=== PATIENT | female | born 1945 | race Caucasian/White ===

== ENCOUNTER 2021-12-14 13:50 | Inpatient (IN) ==
[2021-12-14] MEDS ORDERED: Vancomycin 1,000 MG VIAL IVPB ONE (19:48)
[2021-12-14] MEDS ORDERED: Piperacillin/Tazobactam 3.375 GM in 0.9 % Sodium Chloride Mini Bag 100 ML IVPB ONE (20:00)
[2021-12-14 20:53] LABS: Basophils % 0.3 %; Eosinophils % 4.2 %; Hematocrit 30.8 % (35.3-44.9); Hemoglobin 10.4 g/dL (11.5-15.4); Immature Granulocytes % 0.3 % (0-4); Lymphocytes % 21.9 %; Mean Corpuscular HGB Conc 33.8 g/dL (31.6-35.5); Mean Corpuscular Volume 91.9 fL (83.0-100.0); Mean Platelet Volume 9.9 fL (9.4-12.4); Monocytes % 8.4 %; Platelet Count 186 K/mcL (140-400); Red Blood Count 3.35 M/mcL (3.82-4.97); Red Cell Distribution Width 13.6 % (11.5-14.5); Segmented Neutrophils % 64.9 %; White Blood Count 3.3 K/mcL (4.3-11.1)
[2021-12-14 20:54] LABS: Eosinophils # 0.1 K/mcL (0.0-0.6); Lymphocytes # 0.7 K/mcL (0.6-4.6); Monocytes # 0.3 K/mcL (0.0-1.3); Neutrophils # 2.2 K/mcL (1.6-8.9)
[2021-12-14 21:12] LABS: Calcium 8.9 mg/dL (8.6-10.3); Potassium 4.5 mEq/L (3.5-5.1)
[2021-12-14] MEDS ORDERED: Naloxone 0.4 MG/ML INJ IVP PRN (22:20)
[2021-12-14] MEDS ORDERED: Melatonin 3 MG TABLET PO PRN (22:32)
[2021-12-14] MEDS ORDERED: *HR* OxyCODONE Immed Rel 5 MG TABLET PO PRN (22:32)
[2021-12-14] MEDS ORDERED: Ondansetron 4 MG/2 ML VIAL IVP PRN (22:32)
[2021-12-14] MEDS ORDERED: *HR* HYDROcodone/Acet 5/325 mg TABLET PO PRN (22:32)
[2021-12-14] MEDS ORDERED: Acetaminophen 325 MG TABLET PO PRN (22:32)
[2021-12-14] MEDS: 0.9 % Sodium Chloride 1,000 ML IVC SCH (23:24)
[2021-12-15 05:29] LABS: INR 1.2
[2021-12-15 05:36] LABS: Calcium 8.2 mg/dL (8.6-10.3); Magnesium 1.9 mg/dL (1.6-2.6); Potassium 4.9 mEq/L (3.5-5.1)
[2021-12-15] MEDS: *HR* Heparin 5,000 UNIT/ML VIAL SQ SCH ×3 (06:12→22:16)
[2021-12-15 07:15] LABS: Basophils % 0.2 %; Eosinophils % 0.5 %; Hematocrit 31.9 % (35.3-44.9); Hemoglobin 10.4 g/dL (11.5-15.4); Immature Granulocytes % 0.3 % (0-4); Immature Platelets 3.1 % (1.1-6.1); Lymphocytes # 0.2 K/mcL (0.6-4.6); Lymphocytes % 2.9 %; Mean Corpuscular HGB Conc 32.6 g/dL (31.6-35.5); Mean Corpuscular Volume 95.2 fL (83.0-100.0); Mean Platelet Volume 10.9 fL (9.4-12.4); Monocytes # 0.3 K/mcL (0.0-1.3); Monocytes % 5.4 %; Neutrophils # 5.4 K/mcL (1.6-8.9); Platelet Count 104 K/mcL (140-400); Red Blood Count 3.35 M/mcL (3.82-4.97); Red Cell Distribution Width 13.8 % (11.5-14.5); Segmented Neutrophils % 90.7 %; White Blood Count 5.9 K/mcL (4.3-11.1)
[2021-12-15] MEDS: Piperacillin/Tazobactam 3.375 GM in 0.9 % Sodium Chloride Mini Bag 100 ML IVPB SCH (08:41)
[2021-12-15] MEDS ORDERED: allopurinoL 100 MG TABLET PO SCH (09:00)
[2021-12-15] MEDS ORDERED: Gabapentin 300 MG CAPSULE PO SCH ×2 (09:00→12:00)
[2021-12-15] MEDS: 0.9 % Sodium Chloride 1,000 ML IVC SCH (12:00)
[2021-12-15] MEDS ORDERED: Ondansetron 4 MG/2 ML VIAL IVP PRN ×2 (15:40→18:10)
[2021-12-15] MEDS ORDERED: *HR* Labetalol 20 MG/4 ML SYRINGE IVP PRN (15:40)
[2021-12-15] MEDS ORDERED: *HR* FentaNYL (PF) 100 MCG/2 ML VIAL IVP PRN (15:40)
[2021-12-15] MEDS ORDERED: *HR* OxyCODONE Immed Rel 5 MG TABLET PO PRN (15:40)
[2021-12-15] MEDS ORDERED: Ketamine HCL *QUVA* 50mg (1mL) SYRINGE ONE (16:05)
[2021-12-15] MEDS ORDERED: Lidocaine -MPF 2% 2 ML VIAL ONE (16:06)
[2021-12-15] MEDS ORDERED: *HR* Propofol 200 MG/20 ML VIAL IVP ONE (16:07)
[2021-12-15] MEDS ORDERED: Ondansetron 4 MG/2 ML VIAL ONE (16:09)
[2021-12-15] MEDS ORDERED: Lidocaine/EPI 1:200k 1% PF 10 ML VIAL ONE (16:12)
[2021-12-15] MEDS ORDERED: Naloxone 0.4 MG/ML INJ IVP PRN (18:10)
[2021-12-15] MEDS ORDERED: Acetaminophen 325 MG TABLET PO PRN (18:10)
[2021-12-15] MEDS ORDERED: 0.9 % Sodium Chloride 1,000 ML IVC SCH (18:10)
[2021-12-15] MEDS ORDERED: Vancomycin 1,250 MG/262.5 ML IV.SOLN IVPB SCH ×2 (22:00)
[2021-12-15] MEDS: *HR* OxyCODONE Immed Rel 5 MG TABLET PO PRN (22:17)
[2021-12-15] MEDS: Melatonin 3 MG TABLET PO PRN (22:17)
[2021-12-15] MEDS: Gabapentin 300 MG CAPSULE PO SCH (22:18)
[2021-12-16] MEDS: Piperacillin/Tazobactam 3.375 GM in 0.9 % Sodium Chloride Mini Bag 100 ML IVPB SCH ×4 (00:07→23:52)
[2021-12-16] MEDS: *HR* HYDROcodone/Acet 5/325 mg TABLET PO PRN ×2 (00:08→21:22)
[2021-12-16] MEDS: *HR* Heparin 5,000 UNIT/ML VIAL SQ SCH ×3 (05:16→21:22)
[2021-12-16 05:32] LABS: Calcium 7.5 mg/dL (8.6-10.3); Potassium 5.1 mEq/L (3.5-5.1)
[2021-12-16] MEDS: allopurinoL 100 MG TABLET PO SCH (08:23)
[2021-12-16] MEDS: Isosorbide MONOnitrate (24 HR) 30 MG TAB.ER.24H PO SCH (08:23)
[2021-12-16] MEDS: Gabapentin 300 MG CAPSULE PO SCH ×3 (08:23→21:21)
[2021-12-16] MEDS ORDERED: Dextrose 4 GM Chewable Tablets PO PRN ×2 (08:28)
[2021-12-16] MEDS ORDERED: *HR* Dextrose 50 % in Water (Syg) 50 ML SYRINGE IVP PRN (08:28)
[2021-12-16] MEDS ORDERED: D5% in Water 1,000 ML IVC PRN (08:28)
[2021-12-16] MEDS ORDERED: Ringers Solution, Lactated 1,000 ML IVC SCH (08:30)
[2021-12-16] MEDS ORDERED: Acetaminophen 325 MG TABLET PO PRN (08:50)
[2021-12-16] MEDS ORDERED: Isosorbide MONOnitrate (24 HR) 30 MG TAB.ER.24H PO SCH (09:00)
[2021-12-16] MEDS: Insulin DETEMIR 100 UNIT/ML X5UNITS SUBQ SCH ×2 (10:08→21:21)
[2021-12-16] MEDS: Insulin LISPRO 300 UNITS/3 ML VIAL SUBQ SCH ×5 (10:08→21:19)
[2021-12-16] MEDS ORDERED: Insulin DETEMIR 100 UNIT/ML X5UNITS SUBQ ONE (12:04)
[2021-12-16] MEDS: *HR* OxyCODONE Immed Rel 5 MG TABLET PO PRN ×2 (12:08→23:34)
[2021-12-17 04:20] LABS: Albumin/Globulin Ratio 1.4 (1.1-2.2); Bilirubin,Total 0.4 mg/dL (0.3-1.0); Calcium 7.6 mg/dL (8.6-10.3); Globulin 2.2 g/dL (2.4-3.5); Potassium 4.5 mEq/L (3.5-5.1); Total Protein 5.2 g/dL (6.4-8.9)
[2021-12-17] MEDS: *HR* Heparin 5,000 UNIT/ML VIAL SQ SCH ×3 (06:02→20:48)
[2021-12-17] MEDS: Piperacillin/Tazobactam 3.375 GM in 0.9 % Sodium Chloride Mini Bag 100 ML IVPB SCH (07:36)
[2021-12-17] MEDS: Insulin LISPRO 300 UNITS/3 ML VIAL SUBQ SCH ×4 (08:19→20:47)
[2021-12-17] MEDS: allopurinoL 100 MG TABLET PO SCH (08:20)
[2021-12-17] MEDS: Isosorbide MONOnitrate (24 HR) 30 MG TAB.ER.24H PO SCH (08:21)
[2021-12-17] MEDS: Gabapentin 300 MG CAPSULE PO SCH ×3 (08:21→20:39)
[2021-12-17] MEDS: Insulin DETEMIR 100 UNIT/ML X5UNITS SUBQ SCH ×2 (08:26→20:48)
[2021-12-17 09:53] LABS: Uric Acid 7.2 mg/dL (2.3-7.6)
[2021-12-17] MEDS: Lactobacillus 1 EACH CAP.SPRINK PO SCH ×2 (10:01→20:39)
[2021-12-17] MEDS ORDERED: Ringers Solution, Lactated 1,000 ML IVC SCH (11:00)
[2021-12-17] MEDS ORDERED: ceFAZolin 1,000 MG in 0.9 % Sodium Chloride 10 ML IVP SCH (11:00)
[2021-12-17] MEDS: ceFAZolin 1,000 MG in 0.9 % Sodium Chloride Mini Bag 100 ML IVP SCH ×2 (11:40→23:23)
[2021-12-17] MEDS: 0.9 % Sodium Chloride 1,000 ML IVC SCH (11:40)
[2021-12-17 13:59] LABS: Bilirubin,Urine Negative (Negative); Blood,Urine Negative (Negative); Clarity,Urine Clear (Clear); Color,Urine Light-Yellow (Yellow); Glucose,Urine (UA) Normal (Normal); Ketones,Urine Negative (Negative); Leukocyte Esterase,Urine Negative (Negative); Nitrite,Urine Negative (Negative); PH,Urine 5.5 pH Units (5.0-8.0); Protein,Urine Trace mg/dL (Neg-Trace); Urobilinogen,Urine Normal (Normal)
[2021-12-17 14:19] LABS: Sodium, Urine 17.2 mEq/L
[2021-12-17] MEDS ORDERED: ceFAZolin 2,000 MG in 0.9 % Sodium Chloride 100 ML IVPB SCH (16:00)
[2021-12-17] MEDS: *HR* OxyCODONE Immed Rel 5 MG TABLET PO PRN ×2 (16:21→23:24)
[2021-12-18] MEDS: 0.9 % Sodium Chloride 1,000 ML IVC SCH (03:23)
[2021-12-18 03:55] LABS: Basophils % 0.3 %; Eosinophils # 0.1 K/mcL (0.0-0.6); Eosinophils % 3.3 %; Hematocrit 27.9 % (35.3-44.9); Hemoglobin 9.2 g/dL (11.5-15.4); Immature Granulocytes % 2.8 % (0-4); Lymphocytes % 26.8 %; Mean Corpuscular Hemoglobin 31.3 pg (28.0-33.3); Mean Corpuscular Volume 94.9 fL (83.0-100.0); Mean Platelet Volume 10.1 fL (9.4-12.4); Monocytes # 0.3 K/mcL (0.0-1.3); Monocytes % 9.1 %; Neutrophils # 2.1 K/mcL (1.6-8.9); Platelet Count 183 K/mcL (140-400); Red Blood Count 2.94 M/mcL (3.82-4.97); Red Cell Distribution Width 14.1 % (11.5-14.5); Segmented Neutrophils % 57.7 %; White Blood Count 3.6 K/mcL (4.3-11.1)
[2021-12-18 04:16] LABS: Albumin 3.1 g/dL (3.5-5.7); Albumin/Globulin Ratio 1.3 (1.1-2.2); Bilirubin,Total 0.3 mg/dL (0.3-1.0); Calcium 8.1 mg/dL (8.6-10.3); Globulin 2.4 g/dL (2.4-3.5); Potassium 4.5 mEq/L (3.5-5.1); Total Protein 5.5 g/dL (6.4-8.9)
[2021-12-18] MEDS: *HR* Heparin 5,000 UNIT/ML VIAL SQ SCH ×3 (06:20→20:57)
[2021-12-18] MEDS: Isosorbide MONOnitrate (24 HR) 30 MG TAB.ER.24H PO SCH (08:45)
[2021-12-18] MEDS: Lactobacillus 1 EACH CAP.SPRINK PO SCH ×2 (08:45→20:54)
[2021-12-18] MEDS: Gabapentin 300 MG CAPSULE PO SCH ×3 (08:46→20:54)
[2021-12-18] MEDS: allopurinoL 100 MG TABLET PO SCH (08:46)
[2021-12-18] MEDS: Insulin LISPRO 300 UNITS/3 ML VIAL SUBQ SCH ×4 (08:46→20:57)
[2021-12-18] MEDS: Insulin DETEMIR 100 UNIT/ML X5UNITS SUBQ SCH ×2 (08:54→21:11)
[2021-12-18] MEDS: ceFAZolin 1,000 MG in 0.9 % Sodium Chloride Mini Bag 100 ML IVP SCH ×2 (12:07→23:37)
[2021-12-18] MEDS: *HR* OxyCODONE Immed Rel 5 MG TABLET PO PRN (12:25)
[2021-12-18] MEDS: Melatonin 3 MG TABLET PO PRN (20:54)
[2021-12-19] MEDS: *HR* Heparin 5,000 UNIT/ML VIAL SQ SCH ×2 (05:40→14:12)
[2021-12-19 05:42] LABS: Basophils % 0.8 %; Eosinophils # 0.2 K/mcL (0.0-0.6); Eosinophils % 3.8 %; Hematocrit 26.7 % (35.3-44.9); Hemoglobin 8.7 g/dL (11.5-15.4); Immature Granulocytes % 5.5 % (0-4); Lymphocytes % 25.9 %; Mean Corpuscular HGB Conc 32.6 g/dL (31.6-35.5); Mean Corpuscular Hemoglobin 31.1 pg (28.0-33.3); Mean Corpuscular Volume 95.4 fL (83.0-100.0); Mean Platelet Volume 10.1 fL (9.4-12.4); Monocytes # 0.3 K/mcL (0.0-1.3); Neutrophils # 2.2 K/mcL (1.6-8.9); Platelet Count 183 K/mcL (140-400); Red Cell Distribution Width 14.2 % (11.5-14.5)
[2021-12-19 06:07] LABS: Calcium 8.2 mg/dL (8.6-10.3); Potassium 4.3 mEq/L (3.5-5.1)
[2021-12-19 06:13] LABS: Platelet Estimate Normal (Normal)
[2021-12-19] MEDS ORDERED: Insulin DETEMIR 100 UNIT/ML X5UNITS SUBQ SCH (09:00)
[2021-12-19] MEDS ORDERED: Furosemide 40 MG TABLET PO SCH (09:00)
[2021-12-19] MEDS: Insulin LISPRO 300 UNITS/3 ML VIAL SUBQ SCH ×2 (09:10→14:11)
[2021-12-19] MEDS: Gabapentin 300 MG CAPSULE PO SCH ×2 (10:02→14:12)
[2021-12-19] MEDS: allopurinoL 100 MG TABLET PO SCH (10:02)
[2021-12-19] MEDS: Lactobacillus 1 EACH CAP.SPRINK PO SCH (10:03)
[2021-12-19] MEDS: Isosorbide MONOnitrate (24 HR) 30 MG TAB.ER.24H PO SCH (10:03)
[2021-12-19 10:16] VITALS: BP 174/83; PULSE 81; TEMP 97.8; O2SAT 96
[2021-12-19] MEDS: ceFAZolin 1,000 MG in 0.9 % Sodium Chloride Mini Bag 100 ML IVP SCH (14:12)
== END 2021-12-19 17:20 | disposition home health service (06) | DRG 857 ==
LOC: 4WAOSI 13:50 → EMEROOARM 13:50 → SUATTDRO 22:13 → 4WAOSI 23:32
PROVIDERS: ADMIT Internal Medicine; ATTEND Internal Medicine

== ENCOUNTER 2022-01-04 11:17 | Inpatient (IN) ==
[2022-01-04] MEDS ORDERED: *HR* HYDROcodone/Acet 5/325 mg TABLET PO PRN (12:18)
[2022-01-04] MEDS ORDERED: *HR* OxyCODONE Immed Rel 5 MG TABLET PO PRN (12:18)
[2022-01-04] MEDS ORDERED: Ondansetron 4 MG/2 ML VIAL IVP PRN (12:18)
[2022-01-04] MEDS ORDERED: Acetaminophen 325 MG TABLET PO PRN (12:18)
[2022-01-04] MEDS ORDERED: Naloxone 0.4 MG/ML INJ IVP PRN (12:18)
[2022-01-04 13:22] LABS: Basophils % 0.4 %; Eosinophils # 0.1 K/mcL (0.0-0.6); Eosinophils % 2.5 %; Hemoglobin 10.2 g/dL (11.5-15.4); Mean Corpuscular Volume 93.4 fL (83.0-100.0); Neutrophils # 1.3 K/mcL (1.6-8.9); Segmented Neutrophils % 46.7 %; White Blood Count 2.8 K/mcL (4.3-11.1)
[2022-01-04 13:24] LABS: Immature Platelets 2.9 % (1.1-6.1); Lymphocytes # 1.3 K/mcL (0.6-4.6); Mean Corpuscular HGB Conc 32.9 g/dL (31.6-35.5); Mean Corpuscular Hemoglobin 30.7 pg (28.0-33.3); Mean Platelet Volume 10.1 fL (9.4-12.4); Monocytes # 0.2 K/mcL (0.0-1.3); Monocytes % 5.4 %; Red Blood Count 3.32 M/mcL (3.82-4.97); Red Cell Distribution Width 13.6 % (11.5-14.5)
[2022-01-04 13:36] LABS: INR 1.1; Prothrombin Time 12.4 Seconds (9.4-12.1)
[2022-01-04 13:42] LABS: Calcium 9.7 mg/dL (8.6-10.3); Magnesium 2.2 mg/dL (1.6-2.6); Potassium 5.3 mEq/L (3.5-5.1)
[2022-01-04 14:46] LABS: Platelet Count 96 K/mcL (140-400)
[2022-01-04] MEDS ORDERED: Ipratropium/Albuterol Neb 3 ML IH PRN (16:11)
[2022-01-04] MEDS ORDERED: Dextrose Gel 15 GM/37.5 ML TUBE PO PRN ×2 (16:14)
[2022-01-04] MEDS ORDERED: D5% in Water 1,000 ML IVC PRN (16:14)
[2022-01-04] MEDS ORDERED: *HR* Dextrose 50 % in Water (Syg) 50 ML SYRINGE IVP PRN (16:14)
[2022-01-04] MEDS: *HR* Heparin 5,000 UNIT/ML VIAL SQ SCH (18:16)
[2022-01-04] MEDS: Insulin LISPRO 300 UNITS/3 ML VIAL SUBQ SCH (18:16)
[2022-01-04] MEDS: SODIUM ZIRCONIUM CYCLOSILICATE 5 GM POWD.PACK PO SCH (18:29)
[2022-01-04] MEDS: CeFAZolin 2,000 MG/120 ML BAG IVPB SCH (18:37)
[2022-01-04] MEDS ORDERED: Insulin LISPRO 300 UNITS/3 ML VIAL SUBQ SCH (21:00)
[2022-01-05 05:26] LABS: Eosinophils # 0.1 K/mcL (0.0-0.6); Eosinophils % 3.6 %; Hematocrit 27.5 % (35.3-44.9); Hemoglobin 8.9 g/dL (11.5-15.4); Lymphocytes % 51.5 %; Mean Corpuscular HGB Conc 32.4 g/dL (31.6-35.5); Mean Corpuscular Hemoglobin 30.6 pg (28.0-33.3); Mean Corpuscular Volume 94.5 fL (83.0-100.0); Mean Platelet Volume 9.9 fL (9.4-12.4); Monocytes # 0.1 K/mcL (0.0-1.3); Monocytes % 5.2 %; Neutrophils # 0.8 K/mcL (1.6-8.9); Red Blood Count 2.91 M/mcL (3.82-4.97); Red Cell Distribution Width 13.4 % (11.5-14.5); Segmented Neutrophils % 39.7 %; White Blood Count 1.9 K/mcL (4.3-11.1)
[2022-01-05 05:27] LABS: Platelet Count 72 K/mcL (140-400)
[2022-01-05] MEDS: CeFAZolin 2,000 MG/120 ML BAG IVPB SCH ×2 (05:33→16:14)
[2022-01-05] MEDS: *HR* Heparin 5,000 UNIT/ML VIAL SQ SCH ×2 (05:33→18:19)
[2022-01-05 05:44] LABS: Calcium 9.2 mg/dL (8.6-10.3); Potassium 4.5 mEq/L (3.5-5.1)
[2022-01-05 06:34] LABS: Estimated Average Glucose 166 mg/dl; Hemoglobin A1C 7.4 %
[2022-01-05] MEDS: Insulin LISPRO 300 UNITS/3 ML VIAL SUBQ SCH ×3 (08:00→19:53)
[2022-01-05] MEDS: SODIUM ZIRCONIUM CYCLOSILICATE 5 GM POWD.PACK PO SCH (08:03)
[2022-01-05 09:05] LABS: Influenza A PCR Negative (Negative); Influenza B PCR Negative (Negative); Resp. Syncytial Virus PCR Negative (Negative)
[2022-01-05 09:40] LABS: SARS-CoV-2 by PCR (In House) Negative (Negative)
[2022-01-05] MEDS ORDERED: *HR* FentaNYL (PF) 100 MCG/2 ML VIAL ONE (15:35)
[2022-01-05] MEDS ORDERED: Ondansetron 4 MG/2 ML VIAL ONE (15:35)
[2022-01-05] MEDS ORDERED: *HR* Propofol 200 MG/20 ML VIAL IVP ONE (15:35)
[2022-01-05] MEDS ORDERED: *HR* Succinylcholine 200 MG/10 ML VIAL IVP ONE (15:35)
[2022-01-05] MEDS ORDERED: Lidocaine -MPF 2% 2 ML VIAL ONE (15:35)
[2022-01-05] MEDS ORDERED: Lidocaine/EPI 1:100k 1% 50 ML VIAL ONE (15:37)
[2022-01-05] MEDS ORDERED: Lidocaine HCL 4 ML Topical Solution (Laryng-O-Jet Kit Sterile Pak) TP ONE (15:37)
[2022-01-05] MEDS ORDERED: *HR* Rocuronium Bromide 50 MG/5 ML VIAL ONE (15:49)
[2022-01-05] MEDS ORDERED: Albuterol 2.5 MG/3 ML NEBULIZER IH PRN (15:52)
[2022-01-05] MEDS ORDERED: *HR* HYDROmorphone PF 0.5 MG/0.5 ML SYRINGE IVP PRN (15:52)
[2022-01-05] MEDS ORDERED: *HR* Labetalol 20 MG/4 ML SYRINGE IVP PRN (15:52)
[2022-01-05] MEDS ORDERED: Ipratropium Neb 0.5 MG NEBULIZER IH PRN (15:52)
[2022-01-05] MEDS ORDERED: *HR* FentaNYL (PF) 100 MCG/2 ML VIAL IVP PRN (15:52)
[2022-01-05] MEDS ORDERED: Ondansetron 4 MG/2 ML VIAL IVP PRN ×2 (15:52→17:54)
[2022-01-05] MEDS ORDERED: *HR* OxyCODONE/APAP 5/325 TABLET PO PRN (15:52)
[2022-01-05] MEDS ORDERED: D5% in Water 1,000 ML IVC PRN (17:54)
[2022-01-05] MEDS ORDERED: Acetaminophen 325 MG TABLET PO PRN (17:54)
[2022-01-05] MEDS ORDERED: *HR* HYDROcodone/Acet 5/325 mg TABLET PO PRN (17:54)
[2022-01-05] MEDS ORDERED: Dextrose Gel 15 GM/37.5 ML TUBE PO PRN ×2 (17:54)
[2022-01-05] MEDS ORDERED: Naloxone 0.4 MG/ML INJ IVP PRN (17:54)
[2022-01-05] MEDS ORDERED: *HR* Dextrose 50 % in Water (Syg) 50 ML SYRINGE IVP PRN (17:54)
[2022-01-05] MEDS ORDERED: Ipratropium/Albuterol Neb 3 ML IH PRN (17:54)
[2022-01-05] MEDS: *HR* OxyCODONE Immed Rel 5 MG TABLET PO PRN (18:18)
[2022-01-05] MEDS: Gabapentin 300 MG CAPSULE PO SCH (19:41)
[2022-01-05] MEDS ORDERED: Gabapentin 300 MG CAPSULE PO SCH (21:00)
[2022-01-05] MEDS ORDERED: Insulin LISPRO 300 UNITS/3 ML VIAL SUBQ SCH (21:00)
[2022-01-06] MEDS: *HR* OxyCODONE Immed Rel 5 MG TABLET PO PRN (01:10)
[2022-01-06] MEDS ORDERED: CeFAZolin 2,000 MG/120 ML BAG IVPB SCH ×2 (04:00)
[2022-01-06 04:08] VITALS: PULSE 68
[2022-01-06] MEDS: *HR* Heparin 5,000 UNIT/ML VIAL SQ SCH (05:33)
[2022-01-06 06:32] LABS: Calcium 8.7 mg/dL (8.6-10.3); Magnesium 2.1 mg/dL (1.6-2.6); Potassium 5.6 mEq/L (3.5-5.1)
[2022-01-06 06:38] LABS: Hematocrit 28.8 % (35.3-44.9); Immature Granulocytes % 0.4 % (0-4)
[2022-01-06 06:40] LABS: Hemoglobin 9.2 g/dL (11.5-15.4); Immature Platelets 3.9 % (1.1-6.1); Lymphocytes # 0.9 K/mcL (0.6-4.6); Lymphocytes % 37.7 %; Mean Corpuscular HGB Conc 31.9 g/dL (31.6-35.5); Mean Corpuscular Hemoglobin 30.2 pg (28.0-33.3); Mean Corpuscular Volume 94.4 fL (83.0-100.0); Mean Platelet Volume 10.8 fL (9.4-12.4); Monocytes # 0.1 K/mcL (0.0-1.3); Monocytes % 2.6 %; Neutrophils # 1.4 K/mcL (1.6-8.9); Red Blood Count 3.05 M/mcL (3.82-4.97); Red Cell Distribution Width 13.3 % (11.5-14.5); Segmented Neutrophils % 59.3 %; White Blood Count 2.3 K/mcL (4.3-11.1)
[2022-01-06 06:42] LABS: Platelet Count 70 K/mcL (140-400)
[2022-01-06] MEDS ORDERED: Insulin LISPRO 300 UNITS/3 ML VIAL SUBQ SCH (07:30)
[2022-01-06] MEDS: Gabapentin 300 MG CAPSULE PO SCH (08:17)
[2022-01-06] MEDS ORDERED: Aspirin Enteric Coated 81 MG Tablet PO SCH ×2 (09:00)
[2022-01-06] MEDS ORDERED: allopurinoL 100 MG TABLET PO SCH ×2 (09:00)
[2022-01-06] MEDS ORDERED: Isosorbide MONOnitrate (24 HR) 30 MG TAB.ER.24H PO SCH ×2 (09:00)
[2022-01-06 11:31] VITALS: BP 100/56; TEMP 97.4; O2SAT 98
== END 2022-01-06 13:21 | disposition home health service (06) | DRG 857 ==
LOC: 4WAOSI → SUATTDRO 11:26 → 4WAOSI 11:36
PROVIDERS: ADMIT Internal Medicine; ATTEND Pharmacist